=== PATIENT | female | born 1965 | race Caucasian/White ===

== ENCOUNTER 2021-04-04 10:39 | Emergency (ER) | payer BC, OTHER ==
[2021-04-04 10:53] VITALS: BP 111/75; PULSE 77; TEMP 97.8; BMI 27.1
[2021-04-04] MEDS ORDERED: LIDOCAINE 5% TOPICAL PATCH TP ONE (11:27)
[2021-04-04] MEDS ORDERED: METHOCARBAMOL 500 MG TABLET PO ONE (11:27)
[2021-04-04] MEDS ORDERED: KETOROLAC TROMETHAMINE 60 MG/2 ML VIAL IM ONE (11:27)
[2021-04-04] MEDS ORDERED: METHOCARBAMOL 500 MG TABLET ONE (11:32)
[2021-04-04] MEDS ORDERED: KETOROLAC TROMETHAMINE 30 MG/1 ML VIAL ONE (11:33)
[2021-04-04] MEDS ORDERED: LIDOCAINE 5% TOPICAL PATCH ONE (11:33)
[2021-04-04 12:03] LABS: URINE APPEARANCE CLEAR; URINE BILIRUBIN NEGATIVE (NEGATIVE); URINE COLOR YELLOW; URINE GLUCOSE (UA) NEGATIVE (NEGATIVE); URINE KETONE NEGATIVE (NEGATIVE); URINE LEUK ESTERASE NEGATIVE (NEGATIVE); URINE NITRITE NEGATIVE (NEGATIVE); URINE PROTEIN NEGATIVE (NEGATIVE); URINE UROBILINOGEN 0.2 mg/dL (0.2-1.0)
[2021-04-04] MEDS ORDERED: ACETAMINOPHEN 325 MG TABLET (FP) PO ONE (13:01)
[2021-04-04] MEDS ORDERED: ACETAMINOPHEN 325 MG TABLET (FP) ONE (13:13)
== END 2021-04-04 16:06 | disposition home or self-care (01) ==
LOC: JER 10:39
PROC: 3E0233Z Introduction of Anti-inflammatory into Muscle, Percutaneous Approach (ICD-10-PCS; principal; 2021-04-04)
DX: M54.50 Low back pain, unspecified (principal)
CPT/HCPCS: 72100-TC-FY; 72131-TC; 81003; 82962; 87086; 99284-25